=== PATIENT | male | born 1970 | race African-American/Black ===

== ENCOUNTER 2016-12-14 13:48 | Inpatient (IN) | payer BC ==
[2016-12-14 14:47] VITALS: BMI 30.8
--- NOTE | 2016-12-14 15:42 | HP ---
CIWA Score - CIWA Score Nausea/Vomitin Muscle Tremors: 3 Anxiety: 3 Agitation: 3 Paroxysmal Sweats: 1-Minimal Palms Moist Orientation: 0-Oriented Tacttile Disturbances: 2-Mild Itch/Numbness/Burn Auditory Disturbances: 2-Mild Harshness/Frighten Visual Disturbances: 1-Very Mild Sensitivity Headache: 2-Mild CIWA-Ar Total Score: 20 Admission ROS BHS - HPI Chief Complaint: I NEED HELP TO STOP DRINKING ALCOHOL Allergies/Adverse Reactions: Allergies Allergy/AdvReac Type Severity Reaction Status Date / Time Fish Containing Products Allergy Severe Swelling Verified 12/14/16 15:23 History of Present Illness: THIS 46 YEARS OLD MALE WITH ALCOHOL DEPENDENCE,SEEKING DETOX,NEVER BEEN IN DETOX BEFORE NICOTINE DEPENDENCE HISTORY OF HYPERTENSION,SEIZURE LAST 4 MONTH AGO,HISTORY OF PE,DVT LEFT LEG IN 2006,IVC FILTER IN 2006 LOW BACK PAIN HYPERCHOLESTEROLEMIA Exam Limitations: No Limitations - Ebola screening Have you traveled outside of the country in the last 21 days: No Have you been sick,other than usual withdrawal symptoms: No - Review of Systems Constitutional: Loss of Appetite, Malaise, Night Sweats, Changes in sleep EENT: reports: Nose Congestion Respiratory: reports: No Symptoms reported Cardiac: reports: No Symptoms Reported GI: reports: Diarrhea, Nausea, Abdominal cramping : reports: No Symptoms Reported Musculoskeletal: reports: Back Pain, Muscle Pain Integumentary: reports: Dryness Neuro: reports: Headache, Tremors Endocrine: reports: No Symptoms Reported Hematology: reports: No Symptoms Reported Psychiatric: reports: No Sypmtoms Reported, Judgement Intact, Mood/Affect Appropiate, Orientated x3 Patient History - Patient Medical History Hx Anemia: No Hx Asthma: No Hx Chronic Obstructive Pulmonary Disease (COPD): No Hx Cancer: No Hx Cardiac Disorders: No Hx Congestive Heart Failure: No Hx Hypertension: Yes (ON MED) Hx Hypercholesterolemia: Yes (ON MED) Hx Pacemaker: No HX Cerebrovascular Accident: No Hx Seizures: Yes (LAST 08/28) Hx Dementia: No Hx Diabetes: No Hx Gastrointestinal Disorders: No Hx Liver Disease: No Hx Genitourinary Disorders: No Hx Sexually Transmitted Disorders: Yes (CLAMYDIA,GONORRHEA) Hx Renal Disease (ESRD): No Hx Thyroid Disease: No Hx Human Immunodeficiency Virus (HIV): No (LAST 10/28 NEGATIVE) Hx Hepatitis C: No Hx Depression: No Hx Suicide Attempt: No Hx Bipolar Disorder: No Hx Schizophrenia: No Other Medical History: NO SUCIDAL,NO HOMICIDAL,TAKING BACTRIM DS 1 TAB PO BID - Patient Surgical History Past Surgical History: Yes Other Surgical History: IVC FILTER IN 2006 - PPD History Previous Implant?: Yes Documented Results: Negative w/o proof Implanted On Prior [facility] Admission?: No PPD to be Administered?: Yes - Smoking Cessation Smoking history: Current every day smoker Have you smoked in the past 12 months: Yes Aproximately how many cigarettes per day: 10 Cigars Per Day: 0 Hx Chewing Tobacco Use: No Initiated information on smoking cessation: Yes 'Breaking Loose' booklet given: 12/14/16 - Substance & Tx. History Hx Alcohol Use: Yes Hx Substance Use: No Substance Use Type: Alcohol Hx Substance Use Treatment: No - Substances Abused Alcohol Route: Oral Frequency: Daily Amount used: 1 QT VODKA Age of first use: 27 Date of Last Use: 12/14/16 Family Disease History - Family Disease History Family History: Denies Admission Physical Exam S - Vital Signs Vital Signs: Vital Signs - 24 hr 12/14/16 14:43 Temperature 97.4 F L Pulse Rate 105 H Respiratory 20 Rate Blood Pressure 151/96 - Physical General Appearance: Yes: Moderate Distress, Tremorous, Irritable, Sweating, Anxious HEENTM: Yes: Normal ENT Inspection, YESSY, Pharynx Normal Respiratory: Yes: Lungs Clear, Normal Breath Sounds, No Respiratory Distress Neck: Yes: Within Normal Limits, Supple, Trachea in good position Breast: Yes: Within Normal Limits Cardiology: Yes: Within Normal Limits, Regular Rhythm, Regular Rate, S1, S2 Abdominal: Yes: Within Normal Limits, Normal Bowel Sounds, Non Tender, Soft Genitourinary: Yes: Within Normal Limits Back: Yes: Muscle Spasm Musculoskeletal: Yes: full range of Motion, Back pain, Muscle Pain Extremities: Yes: Within Normal Limits, Normal Inspection, Normal Range of Motion Neurological: Yes: hydrogen treater II-XII NML intact, Alert, Motor Strength 5/5 Integumentary: Yes: Dry Lymphatic: Yes: Within Normal Limits - Diagnostic (1) Alcohol dependence with uncomplicated withdrawal Current Visit: Yes Status: Acute (2) Essential hypertension Current Visit: Yes Status: Acute (3) Hypercholesterolemia Current Visit: Yes Status: Acute (4) Seizure Current Visit: Yes Status: Acute (5) UTI (urinary tract infection) Current Visit: Yes Status: Acute (6) History of pulmonary embolism Current Visit: Yes Status: Acute (7) History of deep venous thrombosis (DVT) of distal vein of left lower extremity Current Visit: Yes Status: Acute (8) S/P IVC filter Current Visit: Yes Status: Acute (9) Low back pain Current Visit: Yes Status: Acute Cleared for Admission [facility] - Detox or Rehab [facility] Level of Care: Medically Managed Detox Regimen/Protocol: Librium [facility] Breath Alcohol Content Breath Alcohol Content: 0.378 Urine Drug Screen - Results Drug Screen Negative: Yes
[2016-12-14] MEDS ORDERED: MAGNESIUM CITRATE 300 ML BOTTLE PO PRN (15:59)
[2016-12-14] MEDS ORDERED: guaiFENesin/D-METHORPHAN HB 10 ML UNIT-DOSE CUPS PO PRN (15:59)
[2016-12-14] MEDS ORDERED: MENTHOL/PHENOL 1 EACH UD MM PRN (15:59)
[2016-12-14] MEDS ORDERED: P-EPHED 60MG/TRIPROLIDI 2.5MG TABLET PO PRN (15:59)
[2016-12-14] MEDS ORDERED: ACETAMINOPHEN 325 MG TABLET (FP) PO PRN (15:59)
[2016-12-14] MEDS ORDERED: LOPERAMIDE HCL 2 MG CAPSULE PO PRN (15:59)
[2016-12-14] MEDS ORDERED: MAG HYDROX/AL HYDROX/SIMETH 30 ML UNIT-DOSE CUP PO PRN (15:59)
[2016-12-14] MEDS ORDERED: hydrOXYzine PAMOATE 50 MG CAPSULE (FP) PO PRN ×2 (15:59→17:32)
[2016-12-14] MEDS ORDERED: IBUPROFEN 400 MG TABLET (FP) PO PRN (15:59)
[2016-12-14] MEDS ORDERED: MAGNESIUM HYDROX 2400MG/30ML ORAL SUSPENSION 30 ML CUP PO PRN (15:59)
[2016-12-14] MEDS ORDERED: chlordiazePOXIDE HCL 25 MG CAPSULE PO ONE (17:30)
[2016-12-14] MEDS: NICOTINE 21 MG/24 HOURS TOPICAL PATCH TD SCH (18:47)
[2016-12-14] MEDS ORDERED: amLODIPine BESYLATE 10 MG TABLET (FP) PO ONE (20:01)
[2016-12-14] MEDS: METOPROLOL TARTRATE 25 MG TABLET (FP) PO SCH (22:39)
[2016-12-14] MEDS: chlordiazePOXIDE HCL 25 MG CAPSULE PO SCH (22:39)
[2016-12-14] MEDS: SULFAMETHOXAZOLE/TRIMETHOPRIM 800MG/160MG D.S. TABLET PO SCH (22:40)
[2016-12-14] MEDS: diphenhydrAMINE HCL 50 MG CAPSULE PO PRN (22:40)
[2016-12-14] MEDS: ATORVASTATIN CA 20 MG TABLET (FP) PO SCH (22:40)
[2016-12-14] MEDS: THIAMINE HCL 100 MG TABLET (FP) PO SCH (22:40)
[2016-12-14 23:17] LABS: URINE APPEARANCE CLEAR; URINE BILIRUBIN NEGATIVE (NEGATIVE); URINE BLOOD 2+ (NEGATIVE); URINE COLOR YELLOW; URINE GLUCOSE (UA) NEGATIVE (NEGATIVE); URINE KETONE NEGATIVE (NEGATIVE); URINE LEUK ESTERASE NEGATIVE (NEGATIVE); URINE NITRITE NEGATIVE (NEGATIVE); URINE UROBILINOGEN NEGATIVE mg/dL (0.2-1.0)
[2016-12-14 23:24] LABS: URINE PROTEIN 3+ (NEGATIVE)
[2016-12-14 23:36] LABS: URINE RBC 3 /hpf (0-3); URINE WBC 1 /hpf (3-5)
[2016-12-15] MEDS: chlordiazePOXIDE HCL 25 MG CAPSULE PO PRN (02:20)
[2016-12-15] MEDS: chlordiazePOXIDE HCL 25 MG CAPSULE PO SCH ×4 (05:44→22:25)
[2016-12-15] MEDS ORDERED: chlordiazePOXIDE HCL 25 MG CAPSULE PO ONE (08:22)
[2016-12-15] MEDS ORDERED: ONDANSETRON *ODT* 4 MG TABLET SL PRN (08:33)
[2016-12-15 09:37] LABS: MCH 36.3 pg (25.7-33.7); MCHC 33.9 g/dl (32.0-35.9); MEAN CELL VOLUME 107.3 fl (80-96); MEAN PLT VOLUME 9.6 fl (7.5-11.1); PLATELET COUNT 95 K/MM3 (134-434); RDW 15.1 % (11.9-15.9); WHITE BLOOD COUNT 3.4 K/mm3 (4.0-10.0)
[2016-12-15 09:53] LABS: ALBUMIN 3.7 g/dl (3.4-5.0); ALK PHOS 79 U/L (45-117); ANION GAP 9 (8-16); BILIRUBIN,TOTAL 1.6 mg/dL (0.2-1.0); CALCIUM 8.5 mg/dL (8.5-10.1); CO2 31 mmol/L (21-32); GLUCOSE,RANDOM 94 mg/dL (74-106); SGOT/AST 86 U/L (15-37); SGPT/ALT 47 U/L (12-78); TOT PROT 7.7 g/dl (6.4-8.2)
[2016-12-15] MEDS ORDERED: PATIENT'S OWN MEDICATION (NON-FORMULARY) (Cyanocobalamin (Vitamin B-12) [Vitamin B-12] 1,0 PO SCH (10:00)
[2016-12-15] MEDS: amLODIPine BESYLATE 10 MG TABLET (FP) PO SCH (10:32)
[2016-12-15] MEDS: LOSARTAN POTASSIUM 50 MG TABLET (FP) PO SCH (10:33)
[2016-12-15] MEDS: SULFAMETHOXAZOLE/TRIMETHOPRIM 800MG/160MG D.S. TABLET PO SCH (10:33)
[2016-12-15] MEDS: METOPROLOL TARTRATE 25 MG TABLET (FP) PO SCH ×2 (10:33→22:24)
[2016-12-15] MEDS: PRENATAL VITAMINS W/ FOLIC ACID TABLET (FP) PO SCH (10:33)
[2016-12-15] MEDS: NICOTINE 21 MG/24 HOURS TOPICAL PATCH TD SCH (10:51)
[2016-12-15] MEDS: CYANOCOBALAMIN 1,000 MCG TABLET (FP) PO SCH (12:18)
--- NOTE | 2016-12-15 12:57 | PN ---
[facility] CIWA - CIWA Score Nausea/Vomitin-No Nausea/No Vomiting Muscle Tremors: 4-Moderate,w/Arms Extend Anxiety: 4-Mod. Anxious/Guarded Agitation: 4-Moderately Restless Paroxysmal Sweats: 1-Minimal Palms Moist Orientation: 0-Oriented Tacttile Disturbances: 3-Moderate Itch/Numb/Burn Auditory Disturbances: 0-None Visual Disturbances: 0-None Headache: 0-None Present CIWA-Ar Total Score: 16 BHS Progress Note (SOAP) Subjective: ANXIETY,SWEATS,TREMORS,INTERMITTENT SLEEP. Objective: 12/15/16 12:55 Vital Signs Temperature 98.0 F 12/15/16 09:26 Pulse Rate 123 H 12/15/16 09:26 Respiratory Rate 20 12/15/16 09:26 Blood Pressure 145/109 12/15/16 09:26 O2 Sat by Pulse Oximetry (%) Laboratory Last Values WBC 3.4 K/mm3 (4.0-10.0) L 12/15/16 07:00 RBC 3.45 M/mm3 (4.00-5.60) L 12/15/16 07:00 Hgb 12.6 GM/dL (11.7-16.9) 12/15/16 07:00 Hct 37.1 % (35.4-49) 12/15/16 07:00 MCV 107.3 fl (80-96) H 12/15/16 07:00 MCH 36.3 pg (25.7-33.7) H 12/15/16 07:00 MCHC 33.9 g/dl (32.0-35.9) 12/15/16 07:00 RDW 15.1 % (11.9-15.9) 12/15/16 07:00 Plt Count 95 K/MM3 (134-434) L 12/15/16 07:00 MPV 9.6 fl (7.5-11.1) 12/15/16 07:00 Sodium 138 mmol/L (136-145) 12/15/16 07:00 Potassium 3.0 mmol/L (3.5-5.1) L 12/15/16 07:00 Chloride 98 mmol/L (98-107) 12/15/16 07:00 Carbon Dioxide 31 mmol/L (21-32) 12/15/16 07:00 Anion Gap 9 (8-16) 12/15/16 07:00 BUN 9 mg/dL (7-18) 12/15/16 07:00 Creatinine 1.0 mg/dL (0.7-1.3) 12/15/16 07:00 Creat Clearance w eGFR > 60 (>60) 12/15/16 07:00 Random Glucose 94 mg/dL (74-106) 12/15/16 07:00 Calcium 8.5 mg/dL (8.5-10.1) 12/15/16 07:00 Total Bilirubin 1.6 mg/dL (0.2-1.0) H 12/15/16 07:00 AST 86 U/L (15-37) H 12/15/16 07:00 ALT 47 U/L (12-78) 12/15/16 07:00 Alkaline Phosphatase 79 U/L (45-117) 12/15/16 07:00 Total Protein 7.7 g/dl (6.4-8.2) 12/15/16 07:00 Albumin 3.7 g/dl (3.4-5.0) 12/15/16 07:00 Urine Color Yellow 12/14/16 21:36 Urine Appearance Clear 12/14/16 21:36 Urine pH 5.0 (5.0-8.0) 12/14/16 21:36 Ur Specific [place] >= 1.030 (1.005-1.025) H 12/14/16 21:36 Urine Protein 3+ (NEGATIVE) H 12/14/16 21:36 Urine Glucose (UA) Negative (NEGATIVE) 12/14/16 21:36 Urine Ketones Negative (NEGATIVE) 12/14/16 21:36 Urine Blood 2+ (NEGATIVE) H 12/14/16 21:36 Urine Nitrite Negative (NEGATIVE) 12/14/16 21:36 Urine Bilirubin Negative (NEGATIVE) 12/14/16 21:36 Urine Urobilinogen Negative mg/dL (0.2-1.0) 12/14/16 21:36 Urine RBC 3 /hpf (0-3) 12/14/16 21:36 Urine WBC 1 /hpf (3-5) 12/14/16 21:36 Ur Epithelial Cells Rare /hpf (FEW) 12/14/16 21:36 RPR Titer Nonreactive (NONREACTIVE) 12/15/16 07:00 Assessment: 12/15/16 12:56 WITHDRAWAL SX Plan: CONTINUE DETOX
[2016-12-15] MEDS ORDERED: POTASSIUM CHLORIDE TABS 20 MEQ TABLET.ER (FP) PO ONE (13:34)
[2016-12-15] MEDS: TRIMETHOPRIM PO SCH (22:24)
[2016-12-15] MEDS: ATORVASTATIN CA 20 MG TABLET (FP) PO SCH (22:24)
[2016-12-15] MEDS: SULFAMETHOXAZOLE PO SCH (22:24)
[2016-12-15] MEDS: [UNRECOGNIZED DRUG - OTHER] PO SCH (22:24)
[2016-12-15] MEDS: POTASSIUM CHLORIDE TABS 20 MEQ TABLET.ER (FP) PO SCH (22:24)
[2016-12-15] MEDS: THIAMINE HCL 100 MG TABLET (FP) PO SCH (22:24)
[2016-12-15] MEDS: diphenhydrAMINE HCL 50 MG CAPSULE PO PRN (22:26)
[2016-12-16] MEDS: diphenhydrAMINE HCL 50 MG CAPSULE PO PRN (00:25)
[2016-12-16] MEDS: chlordiazePOXIDE HCL 25 MG CAPSULE PO PRN (00:27)
[2016-12-16] MEDS: chlordiazePOXIDE HCL 25 MG CAPSULE PO SCH ×2 (06:04→10:15)
--- NOTE | 2016-12-16 07:24 | PN ---
[facility] Progress Note Note: PATIENT HAS INSOMNIA ,WALKING IN OTHER PATIENT'S ROOM,INTERRUPTED SLEEP,INSOMNIA ALERT,ORIENTED X 3 WITHDRAWAL SYMPTOM BLOOD FOR AMMONIA LEVEL TODAY PSYCHIATRIC EVALUATION CONTINUIE DETOX [facility] REGIMEN
[2016-12-16] MEDS: PRENATAL VITAMINS W/ FOLIC ACID TABLET (FP) PO SCH (10:15)
[2016-12-16] MEDS: METOPROLOL TARTRATE 25 MG TABLET (FP) PO SCH (10:15)
[2016-12-16] MEDS: TRIMETHOPRIM PO SCH (10:16)
[2016-12-16] MEDS: [UNRECOGNIZED DRUG - OTHER] PO SCH (10:16)
[2016-12-16] MEDS: POTASSIUM CHLORIDE TABS 20 MEQ TABLET.ER (FP) PO SCH (10:16)
[2016-12-16] MEDS: SULFAMETHOXAZOLE PO SCH (10:16)
[2016-12-16] MEDS: amLODIPine BESYLATE 10 MG TABLET (FP) PO SCH (10:16)
[2016-12-16] MEDS: CYANOCOBALAMIN 1,000 MCG TABLET (FP) PO SCH (10:17)
[2016-12-16 10:18] LABS: BASOPHIL 0.8 % (0-2.0); EOSINOPHIL 0.7 % (0-4.5); MCH 36.2 pg (25.7-33.7); MCHC 33.8 g/dl (32.0-35.9); MEAN CELL VOLUME 107.2 fl (80-96); MEAN PLT VOLUME 10.3 fl (7.5-11.1); NEUTROPHILS 69.5 % (42.8-82.8); PLATELET COUNT 94 K/MM3 (134-434); RDW 14.2 % (11.9-15.9); WHITE BLOOD COUNT 2.8 K/mm3 (4.0-10.0)
[2016-12-16] MEDS: NICOTINE 21 MG/24 HOURS TOPICAL PATCH TD SCH (10:18)
[2016-12-16] MEDS: LOSARTAN POTASSIUM 50 MG TABLET (FP) PO SCH (10:18)
[2016-12-16 10:39] LABS: ALBUMIN 3.9 g/dl (3.4-5.0); ANION GAP 8 (8-16); CALCIUM 9.2 mg/dL (8.5-10.1); CO2 30 mmol/L (21-32); CREATININE 1.4 mg/dL (0.7-1.3); GLUCOSE,RANDOM 85 mg/dL (74-106); SGOT/AST 86 U/L (15-37); SGPT/ALT 46 U/L (12-78)
[2016-12-16 10:41] LABS: ALK PHOS 84 U/L (45-117); BILIRUBIN,TOTAL 1.2 mg/dL (0.2-1.0); TOT PROT 8.3 g/dl (6.4-8.2)
--- NOTE | 2016-12-16 11:09 | PN ---
[facility] CIWA - CIWA Score Nausea/Vomitin-No Nausea/No Vomiting Muscle Tremors: 3 Anxiety: 4-Mod. Anxious/Guarded Agitation: 0-Normal Activity Paroxysmal Sweats: 3 Orientation: 4Disoriented Place/Person Tacttile Disturbances: 2-Mild Itch/Numbness/Burn Auditory Disturbances: 0-None Visual Disturbances: 0-None Headache: 0-None Present CIWA-Ar Total Score: 16 S Progress Note (SOAP) Subjective: Interrupted sleep, Sweating, Fatigue. Objective: PT A & O X 2 (DISORIENTED ABOUT CURRENT LOCATION). NO ACUTE DISTRESS. PT. DENIES CHEST PAIN. 12/16/16 11:01 Vital Signs Temperature 97.4 F L 12/16/16 09:20 Pulse Rate 86 12/16/16 09:20 Respiratory Rate 18 12/16/16 09:20 Blood Pressure 134/96 12/16/16 09:20 O2 Sat by Pulse Oximetry (%) Laboratory Tests 12/14/16 12/15/16 12/15/16 21:36 07:00 07:00 WBC 3.4 L RBC 3.45 L Hgb 12.6 Hct 37.1 MCV 107.3 H MCH 36.3 H MCHC 33.9 RDW 15.1 Plt Count 95 L MPV 9.6 Neutrophils % Lymphocytes % Monocytes % Eosinophils % Basophils % Sodium 138 Potassium 3.0 L Chloride 98 Carbon Dioxide 31 Anion Gap 9 BUN 9 Creatinine 1.0 Creat Clearance w eGFR > 60 Random Glucose 94 Calcium 8.5 Total Bilirubin 1.6 H AST 86 H ALT 47 Alkaline Phosphatase 79 Total Protein 7.7 Albumin 3.7 Urine Color Yellow Urine Appearance Clear Urine pH 5.0 Ur Specific [place] >= 1.030 H Urine Protein 3+ H Urine Glucose (UA) Negative Urine Ketones Negative Urine Blood 2+ H Urine Nitrite Negative Urine Bilirubin Negative Urine Urobilinogen Negative Urine RBC 3 Urine WBC 1 Ur Epithelial Cells Rare RPR Titer 12/15/16 12/16/16 12/16/16 07:00 07:15 07:15 WBC 2.8 L RBC 3.69 L Hgb 13.3 Hct 39.5 MCV 107.2 H MCH 36.2 H MCHC 33.8 RDW 14.2 Plt Count 94 L MPV 10.3 Neutrophils % 69.5 Lymphocytes % 15.4 Monocytes % 13.6 H Eosinophils % 0.7 Basophils % 0.8 Sodium 136 Potassium 3.3 L Chloride 98 Carbon Dioxide 30 Anion Gap 8 BUN 12 D Creatinine 1.4 H D Creat Clearance w eGFR 55.05 Random Glucose 85 Calcium 9.2 Total Bilirubin 1.2 H D AST 86 H ALT 46 Alkaline Phosphatase 84 Total Protein 8.3 H Albumin 3.9 Urine Color Urine Appearance Urine pH Ur Specific [place] Urine Protein Urine Glucose (UA) Urine Ketones Urine Blood Urine Nitrite Urine Bilirubin Urine Urobilinogen Urine RBC Urine WBC Ur Epithelial Cells RPR Titer Nonreactive LABS NOTED. Assessment: 12/16/16 11:02 WITHDRAWAL SYMPTOMS. LEUKOPENIA. THROMBOCYTOPENIA. HYPOKALEMIA. 12/16/16 11:09 Plan: CONTINUE DETOX. D/C MAGNESIUM-CONTAINING MEDS. AND IBUPROFEN. INCREASE DAILY PO FLUID INTAKE. REPEAT UA FOR ELEVATED ADMISSION URINE BLOOD VALUE.
[2016-12-16] MEDS ORDERED: LACTULOSE 20 GM/30 ML UDC (FOR ORAL USE ONLY) PO SCH ×2 (11:15→22:00)
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
[2016-12-16 13:07] LABS: MACROCYTOSIS 3+; STOMATOCYTE 4+
[2016-12-16] MEDS ORDERED: POTASSIUM CHLORIDE ORAL LIQUID 20 MEQ/15 ML PO ONE (13:33)
[2016-12-16 13:38] VITALS: BP 117/84; PULSE 96; TEMP 97.6
--- NOTE | 2016-12-16 13:56 | PN ---
[facility] Progress Note Note: Over the last few hours, patient walked off Detox Unit X 2 and was escorted back to Unit by Security. When asked why he did this, patient patient responded by saying that he wanted to be able to go outside to smoke (patient currently prescribed daily Nicotine replacement patch and PRN Nicotine Gum). Patient A & O X 3. Patient denies any history of Psychiatric illness. Patient warned that if he were to walk off Detox unit again without being escorted by Medical staff for any reason, then he would be discharged from Unit for non-compliance with Unit rules / regulations. Patient verbalized understanding of warning. Carmelita Beck NP
[2016-12-16] MEDS ORDERED: NICOTINE POLACRILEX 2 MG GUM BUC PRN (13:58)
--- NOTE | 2016-12-16 14:24 | EKG ---
Test Reason : Blood Pressure : / mmHG Vent. Rate : 088 BPM Atrial Rate : 088 BPM P-R Int : 150 ms QRS Dur : 110 ms QT Int : 402 ms P-R-T Axes : 054 -28 047 degrees QTc Int : 486 ms NORMAL SINUS RHYTHM MODERATE VOLTAGE CRITERIA FOR LVH, MAY BE NORMAL VARIANT PROLONGED QT ABNORMAL ECG NO PREVIOUS ECGS AVAILABLE Confirmed by JOSE SAINZ MD ([id number]) on 12/16/2016 2:24:46 PM Referred By: Confirmed By:JOSE SAINZ MD
--- NOTE | 2016-12-16 15:32 | DS ---
[facility] Detox Discharge Summary Admission Date: 12/14/16 Discharge Date: 12/16/16 - History Present History: Alcohol Dependence Additional Comments: PATIENT DOES NOT SWISH TO STAY TO COMPLETE DETOX REGIMEN. POSSIBLE RISKS OF NOT COMPLETING DETOX REGIMEN DISCUSSED WITH PATIENT. PATIENT ADVISED TO GO IMMEDIATELY TO NEAREST ER SHOULD ANY INTOLERABLE DETOX SYMPTOMS DEVELOP AT ANY TIME. PATIENT ALSO ADVISED TO COMPLETE REMAINDER OF FULL COURSE OF ANTIBIOTIC ( BACTRIM DS) STARTED BY HIS DAMAGED FREIGHT INSPECTOR FOR POSSIBLE UTI JUST PRIOR TO HIS ADMISSION TO DETOX UNIT (AND CONTINUED WHILE ADMITTED TO DETOX) AND TO FOLLOW-UP WITH DAMAGED FREIGHT INSPECTOR DR. LANDIS ([facility].) FOR MEDICAL ASSESSMENT. COPIES OF ALL LABS DRAWN WHILE ADMITTED FOR DETOX GIVEN TO PATIENT PRIOR TO LEAVING THE UNIT. PATIENT LEFT DETOX UNIT IN STABLE MEDICAL CONDITION. Pertinent Past History: HTN, history of Seizure, S/P IVC Filter, History of DVT of Left Lower Extremity , History of Pulmonary Embolism, UTI, Low Back Pain, Hypercholesterolemia, Nicotine Dependence. - Physical Exam Results Vital Signs: Vital Signs Temperature 97.6 F 12/16/16 13:37 Pulse Rate 96 H 12/16/16 13:37 Respiratory Rate 20 12/16/16 13:37 Blood Pressure 117/84 12/16/16 13:37 O2 Sat by Pulse Oximetry (%) Pertinent Admission Physical Exam Findings: WITHDRAWAL SYMPTOMS. Laboratory Tests 12/14/16 12/15/16 12/15/16 21:36 07:00 07:00 WBC 3.4 L RBC 3.45 L Hgb 12.6 Hct 37.1 MCV 107.3 H MCH 36.3 H MCHC 33.9 RDW 15.1 Plt Count 95 L MPV 9.6 Neutrophils % Lymphocytes % Monocytes % Eosinophils % Basophils % Macrocytosis Stomatocytes Sodium 138 Potassium 3.0 L Chloride 98 Carbon Dioxide 31 Anion Gap 9 BUN 9 Creatinine 1.0 Creat Clearance w eGFR > 60 Random Glucose 94 Calcium 8.5 Total Bilirubin 1.6 H AST 86 H ALT 47 Alkaline Phosphatase 79 Am[place]ia Total Protein 7.7 Albumin 3.7 Urine Color Yellow Urine Appearance Clear Urine pH 5.0 Ur Specific [place] >= 1.030 H Urine Protein 3+ H Urine Glucose (UA) Negative Urine Ketones Negative Urine Blood 2+ H Urine Nitrite Negative Urine Bilirubin Negative Urine Urobilinogen Negative Urine RBC 3 Urine WBC 1 Ur Epithelial Cells Rare RPR Titer 12/15/16 12/16/16 12/16/16 07:00 07:15 07:15 WBC 2.8 L RBC 3.69 L Hgb 13.3 Hct 39.5 MCV 107.2 H MCH 36.2 H MCHC 33.8 RDW 14.2 Plt Count 94 L MPV 10.3 Neutrophils % 69.5 Lymphocytes % 15.4 Monocytes % 13.6 H Eosinophils % 0.7 Basophils % 0.8 Macrocytosis 3+ Stomatocytes 4+ Sodium 136 Potassium 3.3 L Chloride 98 Carbon Dioxide 30 Anion Gap 8 BUN 12 D Creatinine 1.4 H D Creat Clearance w eGFR 55.05 Random Glucose 85 Calcium 9.2 Total Bilirubin 1.2 H D AST 86 H ALT 46 Alkaline Phosphatase 84 Ammonia Total Protein 8.3 H Albumin 3.9 Urine Color Urine Appearance Urine pH Ur Specific [place] Urine Protein Urine Glucose (UA) Urine Ketones Urine Blood Urine Nitrite Urine Bilirubin Urine Urobilinogen Urine RBC Urine WBC Ur Epithelial Cells RPR Titer Nonreactive 12/16/16 07:15 WBC RBC Hgb Hct MCV MCH MCHC RDW Plt Count MPV Neutrophils % Lymphocytes % Monocytes % Eosinophils % Basophils % Macrocytosis Stomatocytes Sodium Potassium Chloride Carbon Dioxide Anion Gap BUN Creatinine Creat Clearance w eGFR Random Glucose Calcium Total Bilirubin AST ALT Alkaline Phosphatase [place]ia 47.97 H Total Protein Albumin Urine Color Urine Appearance Urine pH Ur Specific [place] Urine Protein Urine Glucose (UA) Urine Ketones Urine Blood Urine Nitrite Urine Bilirubin Urine Urobilinogen Urine RBC Urine WBC Ur Epithelial Cells RPR Titer LABS NOTED. - Treatment Hospital Course: Detoxed Safely - Medication Discharge Medications: Ambulatory Orders Amlodipine Besylate [Norvasc -] 10 mg PO DAILY 12/14/16 Atorvastatin Calcium 20 mg PO HS 12/14/16 Cyanocobalamin (Vitamin B-12) [Vitamin B-12] 1,000 mcg PO DAILY 12/14/16 Folic Acid - 1 mg PO DAILY 12/14/16 Losartan Potassium [Cozaar -] 50 mg PO DAILY 12/14/16 Metoprolol Tartrate [Lopressor -] 25 mg PO BID 12/14/16 Sulfamethoxazole/Trimethoprim [Bactrim Ds -] 1 tab PO BID 12/14/16 - Diagnosis (1) Alcohol dependence with uncomplicated withdrawal Current Visit: Yes Status: Acute (2) Essential hypertension Current Visit: Yes Status: Chronic (3) History of deep venous thrombosis (DVT) of distal vein of left lower extremity Current Visit: Yes Status: Chronic (4) History of pulmonary embolism Current Visit: Yes Status: Chronic (5) Hypercholesterolemia Current Visit: Yes Status: Chronic (6) Low back pain Current Visit: Yes Status: Acute Qualifiers: Chronicity: acute Back pain laterality: unspecified Sciatica presence: unspecified whether sciatica present Qualified Code(s): M54.5 - Low back pain; M54.5 - Low back pain (7) S/P IVC filter Current Visit: Yes Status: Chronic (8) Seizure Current Visit: Yes Status: Acute (9) UTI (urinary tract infection) Current Visit: Yes Status: Acute Qualifiers: Urinary tract infection type: site unspecified Hematuria presence: without hematuria Qualified Code(s): N39.0 - Urinary tract infection, site not specified; N39.0 - Urinary tract infection, site not specified; R31.9 - Hematuria, unspecified; R31.9 - Hematuria, unspecified (10) Alcohol-induced sleep disorder Current Visit: Yes Status: Acute (11) Nicotine dependence Current Visit: Yes Status: Chronic Qualifiers: Nicotine product type: cigarettes Substance use status: uncomplicated Qualified Code(s): F17.210 - Nicotine dependence, cigarettes, uncomplicated; F17.210 - Nicotine dependence, cigarettes, uncomplicated - AMA Did Patient Leave Against Medical Advice: Yes (PATIENT DID NOT WISH TO STAY TO COMPLETE DETOX REGIMEN.)
[2016-12-16] MEDS ORDERED: POTASSIUM CHLORIDE ORAL LIQUID 20 MEQ/15 ML PO SCH (20:00)
[2016-12-16] MEDS ORDERED: ZOLPIDEM TARTRATE 10 MG TABLET (PARK CARE ONLY) PO PRN (22:00)
[2016-12-16] MEDS ORDERED: chlordiazePOXIDE 5 MG CAPSULE PO SCH (23:00)
[2016-12-17] MEDS ORDERED: chlordiazePOXIDE HCL 10 MG CAPSULE PO SCH (23:00)
== END 2016-12-16 14:51 | disposition left against medical advice (07) | DRG 894 ==
LOC: YASAS 13:48 → Y3N 17:17
PROVIDERS: ADMIT Internal Medicine; ATTEND Internal Medicine
PROC: HZ2ZZZZ Detoxification Services for Substance Abuse Treatment (ICD-10-PCS; principal; 2016-12-14)
DX: F10.230 Alcohol dependence with withdrawal, uncomplicated (principal); F10.282 Alcohol dependence with alcohol-induced sleep disorder; F17.210 Nicotine dependence, cigarettes, uncomplicated; I10 Essential (primary) hypertension; M54.5 Low back pain; G89.29 Other chronic pain; D72.819 Decreased white blood cell count, unspecified; D69.6 Thrombocytopenia, unspecified; G47.00 Insomnia, unspecified; N31.9 Neuromuscular dysfunction of bladder, unspecified; Z86.718 Personal history of other venous thrombosis and embolism; Z95.828 Presence of other vascular implants and grafts; Z86.69 Personal history of other diseases of the nervous system and sense organs; Z91.013 Allergy to seafood; Z87.438 Personal history of other diseases of male genital organs
CPT/HCPCS: 36415; 80053; 81003; 81015; 82140; 85025; 85027; 86593; 93005; 93010

== ENCOUNTER 2016-12-27 13:43 | Inpatient (IN) | payer BC ==
[2016-12-27 16:07] VITALS: BMI 30.8
--- NOTE | 2016-12-27 19:51 | HP ---
Admission ROS [facility] - [facility] Chief Complaint: I WANT TO GO TO REHAB Allergies/Adverse Reactions: Allergies Allergy/AdvReac Type Severity Reaction Status Date / Time Fish Containing Products Allergy Severe Swelling Verified 12/27/16 19:29 History of Present Illness: 46 YEARS OLD MALE WITH LONG HISTORY OF ALCOHOL NICOTINE DEPENDENCE HAS HYPERTENSION HYPERLIPIDEMIA DENIES MENTAL ILLNESS IS ADMITTED TO REHAB Exam Limitations: No Limitations - Ebola screening Have you traveled outside of the country in the last 21 days: No Have you had contact with anyone from an Ebola affected area: No Have you been sick,other than usual withdrawal symptoms: No Do you have a fever: No - Review of Systems Constitutional: No Symptoms Reported EENT: reports: Blurred Vision (NEED EYE GLASSES) Respiratory: reports: No Symptoms reported Cardiac: reports: No Symptoms Reported GI: reports: No Symptoms Reported : reports: No Symptoms Reported Musculoskeletal: reports: Back Pain Integumentary: reports: No Symptoms Reported Neuro: reports: Seizure (07/2016 HYPERTENSION RELATED) Endocrine: reports: No Symptoms Reported Hematology: reports: No Symptoms Reported Psychiatric: reports: Judgement Intact, Mood/Affect Appropiate, Orientated x3 Other Systems: Reviewed and Negative Patient History - Patient Medical History Hx Anemia: No Hx Asthma: No Hx Chronic Obstructive Pulmonary Disease (COPD): No Hx Cancer: No Hx Cardiac Disorders: No Hx Congestive Heart Failure: No Hx Hypertension: Yes (ON MED) Hx Hypercholesterolemia: Yes (ON MED) Hx Pacemaker: No HX Cerebrovascular Accident: No Hx Seizures: Yes (LAST 08/28) Hx Dementia: No Hx Diabetes: No Hx Gastrointestinal Disorders: No Hx Liver Disease: No Hx Genitourinary Disorders: No Hx Sexually Transmitted Disorders: Yes (CLAMYDIA,GONORRHEA) Hx Renal Disease (ESRD): No Hx Thyroid Disease: No Hx Human Immunodeficiency Virus (HIV): No (LAST 10/28 NEGATIVE) Hx Hepatitis C: No Hx Depression: No Hx Suicide Attempt: No Hx Bipolar Disorder: No Hx Schizophrenia: No - Patient Surgical History Past Surgical History: Yes Other Surgical History: IVC FILTER IN 2006 LEFT LEG Anesthesia Reaction: No - PPD History Previous Implant?: Yes Documented Results: Negative w/proof Implanted On Prior [facility] Admission?: Yes Date: 12/16/16 PPD to be Administered?: No - Smoking Cessation Smoking history: Current every day smoker Have you smoked in the past 12 months: Yes Aproximately how many cigarettes per day: 10 Cigars Per Day: 0 Hx Chewing Tobacco Use: No Initiated information on smoking cessation: Yes 'Breaking Loose' booklet given: 12/27/16 - Substance & Tx. History Hx Alcohol Use: Yes Hx Substance Use: No Substance Use Type: Alcohol Hx Substance Use Treatment: Yes (12/14-12/16/16 [facility]) - Substances Abused Alcohol Route: Oral Frequency: Daily Amount used: MAYITO [place]LE[place] Age of first use: 30 Date of Last Use: 12/26/16 Family Disease History - Family Disease History Family Disease History: Diabetes: Grandparent, Heart Disease: Mother, Brother ( ANEURYSM), Other: Father (), Brother, Sister ( EMBOLISM ) Admission Physical Exam [facility] - Vital Signs Vital Signs: Vital Signs - 24 hr 12/27/16 16:03 Temperature 97.7 F Pulse Rate 86 Respiratory 20 Rate Blood Pressure 160/108 - Physical General Appearance: Yes: No Apparent Distress, Nourished, Appropriately Dressed HEENTM: Yes: Hearing grossly Normal, Normal ENT Inspection, Normocephalic, Normal Voice Respiratory: Yes: Chest Non-Tender, Lungs Clear, Normal Breath Sounds, No Respiratory Distress, No Accessory Muscle Use Neck: Yes: Supple, Trachea in good position Breast: Yes: Breasts Symetrical Cardiology: Yes: Regular Rhythm, Regular Rate, S1, S2 Abdominal: Yes: Normal Bowel Sounds, Non Tender, Soft Genitourinary: Yes: Within Normal Limits Back: Yes: Normal Inspection Musculoskeletal: Yes: full range of Motion, Gait Steady Extremities: Yes: Normal Inspection, Normal Range of Motion, Non-Tender Neurological: Yes: Fully Oriented, Alert, Motor Strength 5/5, Normal Response Integumentary: Yes: Warm Lymphatic: Yes: Within Normal Limits - Diagnostic (1) Alcohol dependence with uncomplicated withdrawal Current Visit: Yes Status: Acute (2) Essential hypertension Current Visit: Yes Status: Chronic (3) Hypercholesterolemia Current Visit: Yes Status: Chronic (4) Nicotine dependence Current Visit: Yes Status: Acute Qualifiers: Nicotine product type: cigarettes Substance use status: in withdrawal Qualified Code(s): F17.213 - Nicotine dependence, cigarettes, with withdrawal; F17.213 - Nicotine dependence, cigarettes, with withdrawal Cleared for Admission [facility] - Detox or Rehab [facility] Level of Care: Observation Bed Detox Regimen/Protocol: Not Applicable Claeared for Rehab Admission: Yes [facility] Breath Alcohol Content Breath Alcohol Content: 0 Urine Drug Screen - Results Drug Screen Negative: No Urine Drug Screen Results: BZO-Benzodiazepines Inpatient Rehab Admission - Initial Determination Are CD services needed?: Yes Free of communicable disease: Yes Not in need of hospitalization: Yes - Rehab Admission Criteria Previous failed treatment: Yes Poor recovery environment: Yes Comorbidities: Yes Lacks judgement: No Patient is meeting Inpatient Rehab admission criteria:: Yes
[2016-12-27] MEDS ORDERED: MAGNESIUM HYDROX 2400MG/30ML ORAL SUSPENSION 30 ML CUP PO PRN (20:05)
[2016-12-27] MEDS ORDERED: MENTHOL/PHENOL 1 EACH UD MM PRN (20:05)
[2016-12-27] MEDS ORDERED: NICOTINE POLACRILEX 2 MG GUM BUC PRN (20:05)
[2016-12-27] MEDS ORDERED: diphenhydrAMINE HCL 50 MG CAPSULE PO PRN (20:05)
[2016-12-27] MEDS ORDERED: guaiFENesin/D-METHORPHAN HB 10 ML UNIT-DOSE CUPS PO PRN (20:05)
[2016-12-27] MEDS ORDERED: MAGNESIUM CITRATE 300 ML BOTTLE PO PRN (20:05)
[2016-12-27] MEDS ORDERED: MAG HYDROX/AL HYDROX/SIMETH 30 ML UNIT-DOSE CUP PO PRN (20:05)
[2016-12-27] MEDS ORDERED: ACETAMINOPHEN 325 MG TABLET (FP) PO PRN (20:05)
[2016-12-27] MEDS ORDERED: TUBERCULIN PPD 5 TU/0.1ML VIAL ID ONE (23:25)
[2016-12-27] MEDS: LOSARTAN POTASSIUM 50 MG TABLET (FP) PO SCH (23:29)
[2016-12-27] MEDS: GABAPENTIN 300 MG CAPSULE (FP) PO SCH (23:29)
[2016-12-27] MEDS: amLODIPine BESYLATE 10 MG TABLET (FP) PO SCH (23:29)
[2016-12-27] MEDS: METOPROLOL SUCCINATE 25 MG TAB.SR.24H (FP) PO SCH (23:29)
[2016-12-27] MEDS: ATORVASTATIN CA 20 MG TABLET (FP) PO SCH (23:30)
[2016-12-27] MEDS: THIAMINE HCL 100 MG TABLET (FP) PO SCH (23:32)
[2016-12-28 01:31] LABS: URINE APPEARANCE CLEAR; URINE BILIRUBIN NEGATIVE (NEGATIVE); URINE BLOOD NEGATIVE (NEGATIVE); URINE COLOR LTYELLOW; URINE GLUCOSE (UA) NEGATIVE (NEGATIVE); URINE KETONE NEGATIVE (NEGATIVE); URINE NITRITE NEGATIVE (NEGATIVE); URINE PROTEIN NEGATIVE (NEGATIVE); URINE UROBILINOGEN NEGATIVE mg/dL (0.2-1.0)
[2016-12-28] MEDS: GABAPENTIN 300 MG CAPSULE (FP) PO SCH ×3 (06:32→21:06)
[2016-12-28] MEDS: PRENATAL VITAMINS W/ FOLIC ACID TABLET (FP) PO SCH (09:30)
[2016-12-28] MEDS: ASPIRIN 81 MG CHEWABLE TABLETS PO SCH (09:30)
[2016-12-28] MEDS: amLODIPine BESYLATE 10 MG TABLET (FP) PO SCH (09:30)
[2016-12-28] MEDS: METOPROLOL SUCCINATE 25 MG TAB.SR.24H (FP) PO SCH ×2 (09:31→21:06)
[2016-12-28] MEDS: LOSARTAN POTASSIUM 50 MG TABLET (FP) PO SCH (09:31)
[2016-12-28] MEDS: NICOTINE 14 MG/24 HOURS TOPICAL PATCH TD SCH (09:32)
[2016-12-28 09:40] LABS: URINE LEUK ESTERASE Negative (NEGATIVE)
--- NOTE | 2016-12-28 09:50 | HP ---
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 Medical History: HTN, hyperlipedemia,LBP, alcohol related seizure, PE/DVT left leg with IVC placed in 2006. Smokes cigarettes 10 a day. Psychiatric History: Patient denies history of psychaitric treatment, Physical/Sexual Abuse/Trauma History: Denies history of sexual,physical and verbal abuse. Vital Signs: Vital Signs - 24 hr 12/27/16 12/27/16 12/28/16 16:03 22:00 00:30 Temperature 97.7 F 99.2 F Pulse Rate 86 94 H Respiratory 20 18 16 Rate Blood Pressure 160/108 162/114 12/28/16 12/28/16 03:30 07:02 Temperature 98.6 F Pulse Rate 90 Respiratory 18 18 Rate Blood Pressure 131/98 Allergies/Adverse Reactions: Allergies Allergy/AdvReac Type Severity Reaction Status Date / Time Fish Containing Products Allergy Severe Swelling Verified 12/27/16 19:29 Date of last physical exam: 12/28/16 Concur with the findings of this exam: Yes - Substance Abuse/Tx History Hx Alcohol Use: Yes Hx Substance Use: No Substance Use Type: Alcohol (started at age of 27, daily 1 q of vodka.) Hx Substance Use Treatment: Yes Mental Status Exam - Mental Status Exam Alert and Oriented to: Time, Place, Person Cognitive Function: Good Patient Appearance: Well Groomed Mood: Hopeful Affect: Appropriate, Mood Congruent Patient Behavior: Appropriate, Cooperative Speech Pattern: Clear, Appropriate Voice Loudness: Normal Thought Process: Intact Thought Disorder: Not Present Suicidal Ideation: Denies Homicidal Ideation: Denies Insight/Judgement: Fair Sleep: Fair (sleeps well with Benadryl) Appetite: Fair Muscle strength/Tone: Normal Gait/Station: Normal Psychiatric Findings - Problem List ([place] 1, 2,3) (1) Nicotine dependence Current Visit: Yes Status: Acute Qualifiers: Nicotine product type: cigarettes Substance use status: in withdrawal Qualified Code(s): F17.213 - Nicotine dependence, cigarettes, with withdrawal; F17.213 - Nicotine dependence, cigarettes, with withdrawal (2) Essential hypertension Current Visit: Yes Status: Chronic (3) Hypercholesterolemia Current Visit: Yes Status: Chronic (4) Low back pain Current Visit: No Status: Acute Qualifiers: Chronicity: acute Back pain laterality: unspecified Sciatica presence: unspecified whether sciatica present Qualified Code(s): M54.5 - Low back pain; M54.5 - Low back pain (5) Seizure Current Visit: No Status: Acute (6) Alcohol dependence Current Visit: Yes Status: Acute - Initial Treatment Plan Initial Treatment Plan: Will continue monitor progress as needed.
[2016-12-28] MEDS: POTASSIUM CHLORIDE ORAL LIQUID 20 MEQ/15 ML PO SCH ×2 (11:22→21:06)
[2016-12-28] MEDS: LOPERAMIDE HCL 2 MG CAPSULE PO PRN ×2 (15:40→22:33)
[2016-12-28] MEDS: THIAMINE HCL 100 MG TABLET (FP) PO SCH (21:06)
[2016-12-28] MEDS: ATORVASTATIN CA 20 MG TABLET (FP) PO SCH (21:06)
[2016-12-28] MEDS: BACLOFEN 10 MG TABLET (FP) PO PRN (21:09)
[2016-12-28] MEDS ORDERED: diphenhydrAMINE HCL 25 MG CAPSULE (FP) PO ONE (22:28)
[2016-12-29] MEDS: GABAPENTIN 300 MG CAPSULE (FP) PO SCH ×3 (06:41→21:08)
[2016-12-29] MEDS: METOPROLOL SUCCINATE 25 MG TAB.SR.24H (FP) PO SCH ×2 (10:02→21:10)
[2016-12-29] MEDS: LOSARTAN POTASSIUM 50 MG TABLET (FP) PO SCH (10:02)
[2016-12-29] MEDS: ASPIRIN 81 MG CHEWABLE TABLETS PO SCH (10:02)
[2016-12-29] MEDS: PRENATAL VITAMINS W/ FOLIC ACID TABLET (FP) PO SCH (10:02)
[2016-12-29] MEDS: amLODIPine BESYLATE 10 MG TABLET (FP) PO SCH (10:02)
[2016-12-29] MEDS: POTASSIUM CHLORIDE ORAL LIQUID 20 MEQ/15 ML PO SCH (10:02)
[2016-12-29] MEDS: NICOTINE 14 MG/24 HOURS TOPICAL PATCH TD SCH (10:03)
[2016-12-29 10:20] LABS: BASOPHIL 0.7 % (0-2.0); EOSINOPHIL 0.6 % (0-4.5); MCH 36.6 pg (25.7-33.7); MCHC 34.3 g/dl (32.0-35.9); MEAN CELL VOLUME 106.8 fl (80-96); MEAN PLT VOLUME 9.4 fl (7.5-11.1); NEUTROPHILS 70.7 % (42.8-82.8); PLATELET COUNT 178 K/MM3 (134-434); RDW 13.4 % (11.9-15.9); WHITE BLOOD COUNT 4.4 K/mm3 (4.0-10.0)
[2016-12-29 10:27] LABS: ALBUMIN 3.3 g/dl (3.4-5.0); ANION GAP 8 (8-16); BILIRUBIN,TOTAL 0.8 mg/dL (0.2-1.0); CALCIUM 8.2 mg/dL (8.5-10.1); CO2 26 mmol/L (21-32); CREATININE 1.1 mg/dL (0.7-1.3); GLUCOSE,RANDOM 92 mg/dL (74-106); SGOT/AST 36 U/L (15-37); SGPT/ALT 28 U/L (12-78); TOT PROT 7.2 g/dl (6.4-8.2)
[2016-12-29 10:28] LABS: ALK PHOS 80 U/L (45-117)
--- NOTE | 2016-12-29 11:05 | EKG ---
Test Reason : Blood Pressure : / mmHG Vent. Rate : 078 BPM Atrial Rate : 078 BPM P-R Int : 160 ms QRS Dur : 100 ms QT Int : 420 ms P-R-T Axes : 053 -17 013 degrees QTc Int : 478 ms NORMAL SINUS RHYTHM NORMAL ECG WHEN COMPARED WITH ECG OF 14-DEC-2016 19:03, NONSPECIFIC T WAVE ABNORMALITY NOW EVIDENT IN LATERAL LEADS Confirmed by MOSES MORENO, TREY ([id number]) on 12/29/2016 11:05:29 AM Referred By: Meghan Ferrara Confirmed By:TREY LOPES MD
--- NOTE | 2016-12-29 11:56 | EKG ---
Test Reason : Blood Pressure : / mmHG Vent. Rate : 078 BPM Atrial Rate : 078 BPM P-R Int : 164 ms QRS Dur : 102 ms QT Int : 408 ms P-R-T Axes : 060 -23 -10 degrees QTc Int : 465 ms NORMAL SINUS RHYTHM MINIMAL VOLTAGE CRITERIA FOR LVH, MAY BE NORMAL VARIANT BORDERLINE ECG WHEN COMPARED WITH ECG OF 28-DEC-2016 05:48, NO SIGNIFICANT CHANGE WAS FOUND Confirmed by MOSES MORENO, TREY ([id number]) on 12/29/2016 11:56:20 AM Referred By: Meghan Ferrara Confirmed By:TREY LOPES MD
[2016-12-29] MEDS: THIAMINE HCL 100 MG TABLET (FP) PO SCH (21:08)
[2016-12-29] MEDS: ATORVASTATIN CA 20 MG TABLET (FP) PO SCH (21:08)
[2016-12-29] MEDS: diphenhydrAMINE HCL 50 MG CAPSULE PO PRN (21:09)
[2016-12-30] MEDS: GABAPENTIN 300 MG CAPSULE (FP) PO SCH ×3 (06:26→21:10)
[2016-12-30] MEDS: METOPROLOL SUCCINATE 25 MG TAB.SR.24H (FP) PO SCH ×2 (09:32→21:10)
[2016-12-30] MEDS: LOSARTAN POTASSIUM 50 MG TABLET (FP) PO SCH (09:32)
[2016-12-30] MEDS: PRENATAL VITAMINS W/ FOLIC ACID TABLET (FP) PO SCH (09:32)
[2016-12-30] MEDS: amLODIPine BESYLATE 10 MG TABLET (FP) PO SCH (09:32)
[2016-12-30] MEDS: ASPIRIN 81 MG CHEWABLE TABLETS PO SCH (09:32)
[2016-12-30] MEDS: NICOTINE 14 MG/24 HOURS TOPICAL PATCH TD SCH (09:33)
--- NOTE | 2016-12-30 12:21 | PN ---
[facility] Progress Note Note: bp slightly elevated will increase cozaar to 100mg daily cont bp monitoring
--- NOTE | 2016-12-30 14:39 | PN ---
Psychiatric Progress Note Vital Signs: Vital Signs Period Temp Pulse Resp BP Sys/Bang Pulse Ox Last 24 Hr 98.5 F 80-81 16-18 127-129/79-91 Date of Session: 12/30/16 Chief Complaint:: "craving" HPI: Patient is addressing alcohol , nicotine dependence. ROS: HTN, hyperlipedemia,LBP, alcohol related seizure, PE/DVT left leg with IVC placed in 2006. Current Medications: Active Medications Generic Name Dose Route Start Last Admin Trade Name Freq PRN Reason Stop Dose Admin Acamprosate 666 mg 12/30/16 22:00 Campral - PO TID XAVIER Acetaminophen 650 mg 12/27/16 20:05 Tylenol - PO Q4H PRN PAIN Al Hydroxide/Mg Hydroxide 30 ml 12/27/16 20:05 Mylanta Oral Suspension - PO Q6H PRN DYSPEPSIA Amlodipine Besylate 10 mg 12/27/16 20:15 12/30/16 09:32 Norvasc - PO 10 mg DAILY XAVIER Administration Aspirin 81 mg 12/28/16 10:00 12/30/16 09:32 Asa - PO 81 mg DAILY XAVIER Administration Atorvastatin Calcium 20 mg 12/27/16 22:00 12/29/16 21:08 Lipitor - PO 20 mg HS XAVIER Administration Baclofen 10 mg 12/27/16 20:06 12/28/16 21:09 Lioresal - PO 10 mg TID PRN Administration BACK PAIN Diphenhydramine HCl 50 mg 12/29/16 10:38 12/29/16 21:09 Benadryl - PO 50 mg HS PRN Administration INSOMNIA Eucalyptus/Menthol/Phenol/Sorbitol 1 each 12/27/16 20:05 Cepastat Lozenge - MM Q4H PRN SORE THROAT Gabapentin 300 mg 12/27/16 22:00 12/30/16 14:06 Neurontin - PO 300 mg TID XAVIER Administration Guaifenesin 10 ml 12/27/16 20:05 Robitussin Dm - PO Q6H PRN COUGH Loperamide HCl 4 mg 12/27/16 20:05 12/28/16 22:33 Imodium - PO 4 mg Q6H PRN Administration DIARRHEA Losartan Potassium 100 mg 12/31/16 10:00 Cozaar - PO DAILY XAVIER Magnesium Citrate 300 ml 12/27/16 20:05 Citroma - PO Q48H PRN CONSTIPATION Magnesium Hydroxide 30 ml 12/27/16 20:05 Milk Of Magnesia - PO DAILY PRN CONSTIPATION Metoprolol Succinate 25 mg 12/27/16 22:00 12/30/16 09:32 Toprol Xl - PO 25 mg BID XAVIER Administration Nicotine 14 mg 12/28/16 10:00 12/30/16 09:33 Nicoderm Patch - TD 14 mg DAILY XAVIER Administration Nicotine Polacrilex 2 mg 12/27/16 20:05 Nicorette Gum - BUC Q2H PRN NICOTINE REPLACEMENT RX Multivit/Folic Acid/Iron 1 tab 12/28/16 10:00 12/30/16 09:32 Vitamins ([facility]) - PO 1 tab DAILY XAVIER Administration Pseudoephedrine/Triprolidine 1 combo 12/27/16 20:05 Actifed - PO TID PRN NASAL CONGESTION Thiamine HCl 100 mg 12/27/16 22:00 12/29/16 21:08 Vitamin B1 - PO 100 mg HS XAVIER Administration Medication(s) Change(s): Campral 666 mg po tid. Current Side Effect: No Lab tests ordered: No Lab tests reviewed: Yes Provider note:: Patient reports he has craving and anxious that he might relapse after the completion of his treatment Discussed indicationsma dproperties of CAmpra, psycheducation provided, patient agreed to start tretament while he is in rehabilitaiton. Will add Campral and monitor progress as needed. Total face to face time:: 30 Mental Status Exam - Mental Status Exam Alert and Oriented to: Time, Place, Person Cognitive Function: Good Patient Appearance: Well Groomed Mood: Anxious Affect: Appropriate, Mood Congruent Patient Behavior: Appropriate, Cooperative Speech Pattern: Clear, Appropriate Voice Loudness: Normal Thought Process: Intact, Goal Oriented Thought Disorder: Not Present Hallucinations: Denies Suicidal Ideation: Denies Homicidal Ideation: Denies Insight/Judgement: Fair Sleep: Fair Appetite: Fair Muscle strength/Tone: Normal Gait/Station: Normal Psychiatric Treatment Plan - Problem List (1) Nicotine dependence Current Visit: Yes Qualifiers: Nicotine product type: cigarettes Substance use status: in withdrawal Qualified Code(s): F17.213 - Nicotine dependence, cigarettes, with withdrawal; F17.213 - Nicotine dependence, cigarettes, with withdrawal (2) Essential hypertension Current Visit: Yes (3) Hypercholesterolemia Current Visit: Yes (4) Low back pain Current Visit: No Qualifiers: Chronicity: acute Back pain laterality: unspecified Sciatica presence: unspecified whether sciatica present Qualified Code(s): M54.5 - Low back pain; M54.5 - Low back pain (5) Seizure Current Visit: No (6) Alcohol dependence Current Visit: Yes
--- NOTE | 2016-12-30 15:14 | PN ---
[facility] Progress Note Note: AMMONIA LEVEL 44.4 TO GIVE LACTULOSE 20 GRAMS PO BID,D/C TYLENOL
[2016-12-30] MEDS: ATORVASTATIN CA 20 MG TABLET (FP) PO SCH (21:10)
[2016-12-30] MEDS: THIAMINE HCL 100 MG TABLET (FP) PO SCH (21:10)
[2016-12-30] MEDS: LACTULOSE 20 GM/30 ML UDC (FOR ORAL USE ONLY) PO SCH (21:12)
[2016-12-30] MEDS: ACAMPROSATE CALCIUM 333 MG TABLET.DR PO SCH (21:12)
[2016-12-30] MEDS: diphenhydrAMINE HCL 50 MG CAPSULE PO PRN (22:07)
[2016-12-31] MEDS: ACAMPROSATE CALCIUM 333 MG TABLET.DR PO SCH ×3 (06:09→21:13)
[2016-12-31] MEDS: GABAPENTIN 300 MG CAPSULE (FP) PO SCH ×3 (06:09→21:13)
[2016-12-31] MEDS: LACTULOSE 20 GM/30 ML UDC (FOR ORAL USE ONLY) PO SCH ×2 (10:00→21:12)
[2016-12-31] MEDS ORDERED: AMLODIPINE PO SCH (10:00)
[2016-12-31] MEDS: PRENATAL VITAMINS W/ FOLIC ACID TABLET (FP) PO SCH (10:00)
[2016-12-31] MEDS: ASPIRIN 81 MG CHEWABLE TABLETS PO SCH (10:00)
[2016-12-31] MEDS: METOPROLOL SUCCINATE 25 MG TAB.SR.24H (FP) PO SCH ×2 (10:00→21:14)
[2016-12-31] MEDS: NICOTINE 14 MG/24 HOURS TOPICAL PATCH TD SCH (10:00)
[2016-12-31] MEDS: LOSARTAN POTASSIUM 50 MG TABLET (FP) PO SCH (10:01)
[2016-12-31] MEDS: amLODIPine BESYLATE 10 MG TABLET (FP) PO SCH (10:01)
[2016-12-31] MEDS: THIAMINE HCL 100 MG TABLET (FP) PO SCH (21:13)
[2016-12-31] MEDS: ATORVASTATIN CA 20 MG TABLET (FP) PO SCH (21:13)
[2016-12-31] MEDS: diphenhydrAMINE HCL 50 MG CAPSULE PO PRN (21:15)
[2017-01-01] MEDS: GABAPENTIN 300 MG CAPSULE (FP) PO SCH ×3 (06:20→21:10)
[2017-01-01] MEDS: ACAMPROSATE CALCIUM 333 MG TABLET.DR PO SCH ×3 (06:20→21:10)
[2017-01-01] MEDS: ASPIRIN 81 MG CHEWABLE TABLETS PO SCH (09:36)
[2017-01-01] MEDS: amLODIPine BESYLATE 10 MG TABLET (FP) PO SCH (09:36)
[2017-01-01] MEDS: PRENATAL VITAMINS W/ FOLIC ACID TABLET (FP) PO SCH (09:36)
[2017-01-01] MEDS: METOPROLOL SUCCINATE 25 MG TAB.SR.24H (FP) PO SCH ×2 (09:36→21:10)
[2017-01-01] MEDS: LOSARTAN POTASSIUM 50 MG TABLET (FP) PO SCH (09:37)
[2017-01-01] MEDS: LACTULOSE 20 GM/30 ML UDC (FOR ORAL USE ONLY) PO SCH ×2 (09:37→21:12)
[2017-01-01] MEDS: NICOTINE 14 MG/24 HOURS TOPICAL PATCH TD SCH (09:38)
[2017-01-01] MEDS: ATORVASTATIN CA 20 MG TABLET (FP) PO SCH (21:10)
[2017-01-01] MEDS: diphenhydrAMINE HCL 50 MG CAPSULE PO PRN (21:11)
[2017-01-01] MEDS: THIAMINE HCL 100 MG TABLET (FP) PO SCH (21:11)
[2017-01-02] MEDS: ACAMPROSATE CALCIUM 333 MG TABLET.DR PO SCH ×3 (06:12→21:05)
[2017-01-02] MEDS: GABAPENTIN 300 MG CAPSULE (FP) PO SCH ×3 (06:59→21:05)
[2017-01-02] MEDS: METOPROLOL SUCCINATE 25 MG TAB.SR.24H (FP) PO SCH ×2 (09:58→22:13)
[2017-01-02] MEDS: PRENATAL VITAMINS W/ FOLIC ACID TABLET (FP) PO SCH (09:58)
[2017-01-02] MEDS: LOSARTAN POTASSIUM 50 MG TABLET (FP) PO SCH (09:59)
[2017-01-02] MEDS: amLODIPine BESYLATE 10 MG TABLET (FP) PO SCH (09:59)
[2017-01-02] MEDS: LACTULOSE 20 GM/30 ML UDC (FOR ORAL USE ONLY) PO SCH ×2 (10:00→21:05)
[2017-01-02] MEDS: NICOTINE 14 MG/24 HOURS TOPICAL PATCH TD SCH (10:00)
[2017-01-02] MEDS: ASPIRIN 81 MG CHEWABLE TABLETS PO SCH (10:00)
[2017-01-02] MEDS ORDERED: PT OWN MED DRAWER 7, Y5N ONE (20:22)
[2017-01-02] MEDS: THIAMINE HCL 100 MG TABLET (FP) PO SCH (21:05)
[2017-01-02] MEDS: ATORVASTATIN CA 20 MG TABLET (FP) PO SCH (21:05)
[2017-01-02] MEDS: diphenhydrAMINE HCL 50 MG CAPSULE PO PRN (21:06)
[2017-01-02] MEDS: BACLOFEN 10 MG TABLET (FP) PO PRN (22:18)
[2017-01-03] MEDS: GABAPENTIN 300 MG CAPSULE (FP) PO SCH ×3 (06:10→21:02)
[2017-01-03] MEDS: ACAMPROSATE CALCIUM 333 MG TABLET.DR PO SCH ×3 (06:10→21:02)
[2017-01-03] MEDS: LOSARTAN POTASSIUM 50 MG TABLET (FP) PO SCH (09:55)
[2017-01-03] MEDS: ASPIRIN 81 MG CHEWABLE TABLETS PO SCH (09:55)
[2017-01-03] MEDS: amLODIPine BESYLATE 10 MG TABLET (FP) PO SCH (09:56)
[2017-01-03] MEDS: NICOTINE 14 MG/24 HOURS TOPICAL PATCH TD SCH (09:56)
[2017-01-03] MEDS: LACTULOSE 20 GM/30 ML UDC (FOR ORAL USE ONLY) PO SCH ×2 (09:56→21:03)
[2017-01-03] MEDS: PRENATAL VITAMINS W/ FOLIC ACID TABLET (FP) PO SCH (09:56)
[2017-01-03] MEDS: METOPROLOL SUCCINATE 25 MG TAB.SR.24H (FP) PO SCH ×2 (10:47→21:02)
[2017-01-03] MEDS: ATORVASTATIN CA 20 MG TABLET (FP) PO SCH (21:02)
[2017-01-03] MEDS: THIAMINE HCL 100 MG TABLET (FP) PO SCH (21:02)
[2017-01-04] MEDS: GABAPENTIN 300 MG CAPSULE (FP) PO SCH ×3 (06:25→21:08)
[2017-01-04] MEDS: ACAMPROSATE CALCIUM 333 MG TABLET.DR PO SCH ×3 (06:25→21:08)
[2017-01-04] MEDS: LOSARTAN POTASSIUM 50 MG TABLET (FP) PO SCH (09:56)
[2017-01-04] MEDS: ASPIRIN 81 MG CHEWABLE TABLETS PO SCH (09:56)
[2017-01-04] MEDS: PRENATAL VITAMINS W/ FOLIC ACID TABLET (FP) PO SCH (09:56)
[2017-01-04] MEDS: METOPROLOL SUCCINATE 25 MG TAB.SR.24H (FP) PO SCH ×2 (09:56→21:08)
[2017-01-04] MEDS: amLODIPine BESYLATE 10 MG TABLET (FP) PO SCH (09:57)
[2017-01-04] MEDS: NICOTINE 14 MG/24 HOURS TOPICAL PATCH TD SCH (09:57)
[2017-01-04] MEDS: LACTULOSE 20 GM/30 ML UDC (FOR ORAL USE ONLY) PO SCH (09:57)
--- NOTE | 2017-01-04 14:31 | PN ---
Psychiatric Progress Note Vital Signs: Vital Signs Period Temp Pulse Resp BP Sys/Bang Pulse Ox Last 24 Hr 98.2 F 83-90 18-18 107-127/74-93 Date of Session: 01/04/17 Chief Complaint:: insomnia HPI: Patient is addressing alcohol , nicotine dependence. ROS: HTN, hyperlipedemia,LBP, alcohol related seizure, PE/DVT left leg with IVC placed in 2006. Current Medications: Active Medications Generic Name Dose Route Start Last Admin Trade Name Freq PRN Reason Stop Dose Admin Acamprosate 666 mg 12/30/16 22:00 01/04/17 14:20 Campral - PO 666 mg TID XAVIER Administration Al Hydroxide/Mg Hydroxide 30 ml 12/27/16 20:05 Mylanta Oral Suspension - PO Q6H PRN DYSPEPSIA Amlodipine Besylate 10 mg 12/31/16 10:00 01/04/17 09:57 Norvasc - PO 10 mg DAILY XAVIER Administration Aspirin 81 mg 12/28/16 10:00 01/04/17 09:56 Asa - PO 81 mg DAILY XAVIER Administration Atorvastatin Calcium 20 mg 12/27/16 22:00 01/03/17 21:02 Lipitor - PO 20 mg HS XAVIER Administration Baclofen 10 mg 12/27/16 20:06 01/02/17 22:18 Lioresal - PO 10 mg TID PRN Administration BACK PAIN Diphenhydramine HCl 50 mg 12/29/16 10:38 01/02/17 21:06 Benadryl - PO 50 mg HS PRN Administration INSOMNIA Eucalyptus/Menthol/Phenol/Sorbitol 1 each 12/27/16 20:05 Cepastat Lozenge - MM Q4H PRN SORE THROAT Gabapentin 300 mg 12/27/16 22:00 01/04/17 14:20 Neurontin - PO 300 mg TID XAVIER Administration Guaifenesin 10 ml 12/27/16 20:05 Robitussin Dm - PO Q6H PRN COUGH Lactulose 20 gm 01/05/17 10:00 Cephulac (Oral Use) PO DAILY XAVIER Loperamide HCl 4 mg 12/27/16 20:05 12/28/16 22:33 Imodium - PO 4 mg Q6H PRN Administration DIARRHEA Losartan Potassium 100 mg 12/31/16 10:00 01/04/17 09:56 Cozaar - PO 100 mg DAILY XAVIER Administration Magnesium Citrate 300 ml 12/27/16 20:05 Citroma - PO Q48H PRN CONSTIPATION Magnesium Hydroxide 30 ml 12/27/16 20:05 01/03/17 12:57 Milk Of Magnesia - PO 30 ml DAILY PRN Administration CONSTIPATION Metoprolol Succinate 25 mg 12/27/16 22:00 01/04/17 09:56 Toprol Xl - PO 25 mg BID XAVIER Administration Nicotine 14 mg 12/28/16 10:00 01/04/17 09:57 Nicoderm Patch - TD 14 mg DAILY XAVIER Administration Nicotine Polacrilex 2 mg 12/27/16 20:05 Nicorette Gum - BUC Q2H PRN NICOTINE REPLACEMENT RX Multivit/Folic Acid/Iron 1 tab 12/28/16 10:00 01/04/17 09:56 Vitamins ([facility]) - PO 1 tab DAILY XAVIER Administration Pseudoephedrine/Triprolidine 1 combo 12/27/16 20:05 Actifed - PO TID PRN NASAL CONGESTION Thiamine HCl 100 mg 12/27/16 22:00 01/03/17 21:02 Vitamin B1 - PO 100 mg HS XAVIER Administration Medication(s) Change(s): add Belsomra 5 mg po hs. Current Side Effect: No Lab tests ordered: No Lab tests reviewed: Yes Provider note:: Patient reports he has difficulty to fall and maintain sleep, benadryl not effective, discusssed indications and properties of belsomra, patient agreed to start, will add 5mg po hs, continue to monitor progress. Total face to face time:: 15 Mental Status Exam - Mental Status Exam Alert and Oriented to: Time, Place, Person Cognitive Function: Good Patient Appearance: Well Groomed Mood: Hopeful Affect: Appropriate, Mood Congruent Patient Behavior: Appropriate, Cooperative Speech Pattern: Clear, Appropriate Voice Loudness: Normal Thought Process: Intact, Goal Oriented Thought Disorder: Not Present Hallucinations: Denies Suicidal Ideation: Denies Homicidal Ideation: Denies Insight/Judgement: Fair Sleep: Poorly, Difficulty falling asleep Appetite: Good Muscle strength/Tone: Normal Gait/Station: Normal Psychiatric Treatment Plan - Problem List (1) Nicotine dependence Current Visit: Yes Qualifiers: Nicotine product type: cigarettes Substance use status: in withdrawal Qualified Code(s): F17.213 - Nicotine dependence, cigarettes, with withdrawal; F17.213 - Nicotine dependence, cigarettes, with withdrawal (2) Essential hypertension Current Visit: Yes (3) Hypercholesterolemia Current Visit: Yes (4) Low back pain Current Visit: No Qualifiers: Chronicity: acute Back pain laterality: unspecified Sciatica presence: unspecified whether sciatica present Qualified Code(s): M54.5 - Low back pain; M54.5 - Low back pain (5) Seizure Current Visit: No (6) Alcohol dependence Current Visit: Yes (7) Alcohol-induced sleep disorder Current Visit: No
[2017-01-04 15:57] LABS: ALBUMIN 3.2 g/dl (3.4-5.0); ALK PHOS 74 U/L (45-117); ANION GAP 9 (8-16); BILIRUBIN,TOTAL 0.5 mg/dL (0.2-1.0); CO2 26 mmol/L (21-32); CREATININE 1.2 mg/dL (0.7-1.3); GLUCOSE,RANDOM 90 mg/dL (74-106); SGOT/AST 21 U/L (15-37); SGPT/ALT 22 U/L (12-78); TOT PROT 6.8 g/dl (6.4-8.2)
[2017-01-04] MEDS: THIAMINE HCL 100 MG TABLET (FP) PO SCH (21:08)
[2017-01-04] MEDS: ATORVASTATIN CA 20 MG TABLET (FP) PO SCH (21:08)
[2017-01-04] MEDS: SUVOREXANT 5 MG TABLET PO SCH (21:08)
[2017-01-04] MEDS: diphenhydrAMINE HCL 50 MG CAPSULE PO PRN (21:10)
[2017-01-04] MEDS: BACLOFEN 10 MG TABLET (FP) PO PRN (21:53)
[2017-01-05] MEDS: GABAPENTIN 300 MG CAPSULE (FP) PO SCH ×3 (06:33→21:14)
[2017-01-05] MEDS: ACAMPROSATE CALCIUM 333 MG TABLET.DR PO SCH ×3 (06:33→21:13)
[2017-01-05] MEDS: ASPIRIN 81 MG CHEWABLE TABLETS PO SCH (09:53)
[2017-01-05] MEDS: amLODIPine BESYLATE 10 MG TABLET (FP) PO SCH (09:54)
[2017-01-05] MEDS: LACTULOSE 20 GM/30 ML UDC (FOR ORAL USE ONLY) PO SCH (09:54)
[2017-01-05] MEDS: PRENATAL VITAMINS W/ FOLIC ACID TABLET (FP) PO SCH (09:54)
[2017-01-05] MEDS: LOSARTAN POTASSIUM 50 MG TABLET (FP) PO SCH (09:54)
[2017-01-05] MEDS: METOPROLOL SUCCINATE 25 MG TAB.SR.24H (FP) PO SCH ×2 (09:54→21:14)
[2017-01-05] MEDS: NICOTINE 14 MG/24 HOURS TOPICAL PATCH TD SCH (09:56)
[2017-01-05] MEDS: BACLOFEN 10 MG TABLET (FP) PO PRN ×2 (10:25→23:34)
--- NOTE | 2017-01-05 11:39 | PN ---
S Progress Note Note: c/o excessive noctureia, medications and labwork reviewed, will d/c fluids elevated ammmonia leve reviewed will take lactulose, decreased dose patient may refuse as it was diarrhoea/skin irrotaion
[2017-01-05] MEDS: SUVOREXANT 5 MG TABLET PO SCH (21:13)
[2017-01-05] MEDS: ATORVASTATIN CA 20 MG TABLET (FP) PO SCH (21:14)
[2017-01-05] MEDS: THIAMINE HCL 100 MG TABLET (FP) PO SCH (21:14)
[2017-01-05] MEDS ORDERED: LORATADINE 10 MG TABLET PO ONE (23:18)
[2017-01-06] MEDS: ACAMPROSATE CALCIUM 333 MG TABLET.DR PO SCH ×3 (06:33→21:07)
[2017-01-06] MEDS: GABAPENTIN 300 MG CAPSULE (FP) PO SCH ×3 (06:33→21:07)
[2017-01-06] MEDS: ASPIRIN 81 MG CHEWABLE TABLETS PO SCH (09:51)
[2017-01-06] MEDS: amLODIPine BESYLATE 10 MG TABLET (FP) PO SCH (09:52)
[2017-01-06] MEDS: METOPROLOL SUCCINATE 25 MG TAB.SR.24H (FP) PO SCH ×2 (09:52→21:07)
[2017-01-06] MEDS: PRENATAL VITAMINS W/ FOLIC ACID TABLET (FP) PO SCH (09:52)
[2017-01-06] MEDS: LACTULOSE 20 GM/30 ML UDC (FOR ORAL USE ONLY) PO SCH (09:52)
[2017-01-06] MEDS: LOSARTAN POTASSIUM 50 MG TABLET (FP) PO SCH (09:52)
[2017-01-06] MEDS: NICOTINE 14 MG/24 HOURS TOPICAL PATCH TD SCH (09:53)
[2017-01-06] MEDS: BACLOFEN 10 MG TABLET (FP) PO PRN ×2 (11:08→21:09)
[2017-01-06] MEDS: P-EPHED 60MG/TRIPROLIDI 2.5MG TABLET PO PRN ×2 (11:08→21:09)
[2017-01-06] MEDS: ATORVASTATIN CA 20 MG TABLET (FP) PO SCH (21:07)
[2017-01-06] MEDS: THIAMINE HCL 100 MG TABLET (FP) PO SCH (21:07)
[2017-01-06] MEDS: SUVOREXANT 5 MG TABLET PO SCH (21:07)
[2017-01-07] MEDS: ACAMPROSATE CALCIUM 333 MG TABLET.DR PO SCH ×3 (06:31→21:05)
[2017-01-07] MEDS: GABAPENTIN 300 MG CAPSULE (FP) PO SCH ×3 (06:31→21:05)
[2017-01-07] MEDS: LOSARTAN POTASSIUM 50 MG TABLET (FP) PO SCH (09:34)
[2017-01-07] MEDS: METOPROLOL SUCCINATE 25 MG TAB.SR.24H (FP) PO SCH ×2 (09:34→21:05)
[2017-01-07] MEDS: amLODIPine BESYLATE 10 MG TABLET (FP) PO SCH (09:34)
[2017-01-07] MEDS: ASPIRIN 81 MG CHEWABLE TABLETS PO SCH (09:34)
[2017-01-07] MEDS: PRENATAL VITAMINS W/ FOLIC ACID TABLET (FP) PO SCH (09:34)
[2017-01-07] MEDS: LACTULOSE 20 GM/30 ML UDC (FOR ORAL USE ONLY) PO SCH (09:34)
[2017-01-07] MEDS: NICOTINE 14 MG/24 HOURS TOPICAL PATCH TD SCH (09:35)
[2017-01-07] MEDS: BACLOFEN 10 MG TABLET (FP) PO PRN ×2 (10:51→21:07)
[2017-01-07] MEDS: ATORVASTATIN CA 20 MG TABLET (FP) PO SCH (21:05)
[2017-01-07] MEDS: THIAMINE HCL 100 MG TABLET (FP) PO SCH (21:05)
[2017-01-07] MEDS: SUVOREXANT 5 MG TABLET PO SCH (21:05)
[2017-01-07] MEDS: P-EPHED 60MG/TRIPROLIDI 2.5MG TABLET PO PRN (21:07)
[2017-01-08] MEDS: ACAMPROSATE CALCIUM 333 MG TABLET.DR PO SCH ×3 (06:25→21:26)
[2017-01-08] MEDS: GABAPENTIN 300 MG CAPSULE (FP) PO SCH ×3 (06:25→21:26)
[2017-01-08] MEDS: NICOTINE 14 MG/24 HOURS TOPICAL PATCH TD SCH (09:51)
[2017-01-08] MEDS: LACTULOSE 20 GM/30 ML UDC (FOR ORAL USE ONLY) PO SCH (09:51)
[2017-01-08] MEDS: PRENATAL VITAMINS W/ FOLIC ACID TABLET (FP) PO SCH (09:51)
[2017-01-08] MEDS: ASPIRIN 81 MG CHEWABLE TABLETS PO SCH (09:51)
[2017-01-08] MEDS: LOSARTAN POTASSIUM 50 MG TABLET (FP) PO SCH (09:51)
[2017-01-08] MEDS: METOPROLOL SUCCINATE 25 MG TAB.SR.24H (FP) PO SCH ×2 (09:52→21:29)
[2017-01-08] MEDS: amLODIPine BESYLATE 10 MG TABLET (FP) PO SCH (09:52)
[2017-01-08] MEDS: BACLOFEN 10 MG TABLET (FP) PO PRN ×2 (10:48→21:29)
[2017-01-08] MEDS: ATORVASTATIN CA 20 MG TABLET (FP) PO SCH (21:26)
[2017-01-08] MEDS: THIAMINE HCL 100 MG TABLET (FP) PO SCH (21:26)
[2017-01-08] MEDS: SUVOREXANT 5 MG TABLET PO SCH (21:27)
[2017-01-08] MEDS: P-EPHED 60MG/TRIPROLIDI 2.5MG TABLET PO PRN (22:27)
[2017-01-09] MEDS: ACAMPROSATE CALCIUM 333 MG TABLET.DR PO SCH ×3 (06:28→21:08)
[2017-01-09] MEDS: GABAPENTIN 300 MG CAPSULE (FP) PO SCH ×3 (06:28→21:08)
[2017-01-09] MEDS: LACTULOSE 20 GM/30 ML UDC (FOR ORAL USE ONLY) PO SCH (09:30)
[2017-01-09] MEDS: PRENATAL VITAMINS W/ FOLIC ACID TABLET (FP) PO SCH (09:48)
[2017-01-09] MEDS: amLODIPine BESYLATE 10 MG TABLET (FP) PO SCH (09:49)
[2017-01-09] MEDS: LOPERAMIDE HCL 2 MG CAPSULE PO PRN (09:49)
[2017-01-09] MEDS: METOPROLOL SUCCINATE 25 MG TAB.SR.24H (FP) PO SCH ×2 (09:49→21:09)
[2017-01-09] MEDS: LOSARTAN POTASSIUM 50 MG TABLET (FP) PO SCH (09:49)
[2017-01-09] MEDS: ASPIRIN 81 MG CHEWABLE TABLETS PO SCH (09:49)
[2017-01-09] MEDS: NICOTINE 14 MG/24 HOURS TOPICAL PATCH TD SCH (09:50)
--- NOTE | 2017-01-09 13:43 | PN ---
Psychiatric Progress Note Vital Signs: Vital Signs Period Temp Pulse Resp BP Sys/Bang Pulse Ox Last 24 Hr 98.2 F 75-96 18-18 103-130/72-90 Date of Session: 01/09/17 Chief Complaint:: Discharge Note HPI: Patient addressing Alcohol Dependence comorbid with Nicotine Dependence ROS: HTN, Hyperlipidemia and LBP were medically managed Current Medications: Active Medications Generic Name Dose Route Start Last Admin Trade Name Freq PRN Reason Stop Dose Admin Acamprosate 666 mg 12/30/16 22:00 01/09/17 06:28 Campral - PO 666 mg TID XAVIER Administration Al Hydroxide/Mg Hydroxide 30 ml 12/27/16 20:05 Mylanta Oral Suspension - PO Q6H PRN DYSPEPSIA Amlodipine Besylate 10 mg 12/31/16 10:00 01/09/17 09:49 Norvasc - PO 10 mg DAILY XAVIER Administration Aspirin 81 mg 12/28/16 10:00 01/09/17 09:49 Asa - PO 81 mg DAILY XAVIER Administration Atorvastatin Calcium 20 mg 12/27/16 22:00 01/08/17 21:26 Lipitor - PO 20 mg HS XAVIER Administration Baclofen 10 mg 12/27/16 20:06 01/08/17 21:29 Lioresal - PO 10 mg TID PRN Administration BACK PAIN Eucalyptus/Menthol/Phenol/Sorbitol 1 each 12/27/16 20:05 Cepastat Lozenge - MM Q4H PRN SORE THROAT Gabapentin 300 mg 12/27/16 22:00 01/09/17 06:28 Neurontin - PO 300 mg TID XAVIER Administration Guaifenesin 10 ml 12/27/16 20:05 Robitussin Dm - PO Q6H PRN COUGH Lactulose 20 gm 01/05/17 10:00 01/09/17 09:30 Cephulac (Oral Use) PO Not Given DAILY XAVIER Loperamide HCl 4 mg 12/27/16 20:05 01/09/17 09:49 Imodium - PO 4 mg Q6H PRN Administration DIARRHEA Losartan Potassium 100 mg 12/31/16 10:00 01/09/17 09:49 Cozaar - PO 100 mg DAILY XAVIER Administration Magnesium Citrate 300 ml 12/27/16 20:05 Citroma - PO Q48H PRN CONSTIPATION Magnesium Hydroxide 30 ml 12/27/16 20:05 01/03/17 12:57 Milk Of Magnesia - PO 30 ml DAILY PRN Administration CONSTIPATION Metoprolol Succinate 25 mg 12/27/16 22:00 01/09/17 09:49 Toprol Xl - PO 25 mg BID XAVIER Administration Nicotine 14 mg 12/28/16 10:00 01/09/17 09:50 Nicoderm Patch - TD 14 mg DAILY XAVIER Administration Nicotine Polacrilex 2 mg 12/27/16 20:05 Nicorette Gum - BUC Q2H PRN NICOTINE REPLACEMENT RX Multivit/Folic Acid/Iron 1 tab 12/28/16 10:00 01/09/17 09:48 Vitamins ([facility]) - PO 1 tab DAILY XAVIER Administration Pseudoephedrine/Triprolidine 1 combo 12/27/16 20:05 01/08/17 22:27 Actifed - PO 1 combo TID PRN Administration NASAL CONGESTION Thiamine HCl 100 mg 12/27/16 22:00 01/08/17 21:26 Vitamin B1 - PO 100 mg HS XAVIER Administration Current Side Effect: No Lab tests ordered: Yes Lab tests reviewed: Yes Provider note:: Patient will complete this program on 01/10/17. He has met his treatment goals and will continue to address his issues in outpatient treatment at [facility]. 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 He said that from nursing staff, he learned what alcohol and drug can do to your body. From the counselling staff, he learned about his higher power, relapse prevention etc. He responded well to Acamprosate(Campral) 666 mg po TID for alcohol craving. Scripts for 30 days supply of medication given to patient since e transmission for that medication could not be done. He is stable for discharge on 01/10/17 Total face to face time:: 35 Mental Status Exam - Mental Status Exam Alert and Oriented to: Time, Place, Person Cognitive Function: Fair Mood: Hopeful, Euthymic Affect: Appropriate Patient Behavior: Cooperative Speech Pattern: Clear Voice Loudness: Normal Thought Process: Intact, Goal Oriented Thought Disorder: Not Present Hallucinations: Denies Suicidal Ideation: Denies Homicidal Ideation: Denies Insight/Judgement: Fair Sleep: Fair Appetite: Good Muscle strength/Tone: Normal Gait/Station: Normal Psychiatric Treatment Plan - Problem List (1) Alcohol dependence Current Visit: Yes (2) Nicotine dependence Current Visit: Yes Qualifiers: Nicotine product type: cigarettes Substance use status: in withdrawal Qualified Code(s): F17.213 - Nicotine dependence, cigarettes, with withdrawal; F17.213 - Nicotine dependence, cigarettes, with withdrawal (3) Low back pain Current Visit: No Qualifiers: Chronicity: acute Back pain laterality: unspecified Sciatica presence: unspecified whether sciatica present Qualified Code(s): M54.5 - Low back pain; M54.5 - Low back pain (4) Alcohol-induced sleep disorder Current Visit: No (5) Essential hypertension Current Visit: Yes (6) Hypercholesterolemia Current Visit: Yes (7) History of deep venous thrombosis (DVT) of distal vein of left lower extremity Current Visit: No (8) History of pulmonary embolism Current Visit: No (9) S/P IVC filter Current Visit: No Initial treatment plan: Patient is discharged tomorrow and referred to [facility] for outpatient treatment
[2017-01-09] MEDS: ATORVASTATIN CA 20 MG TABLET (FP) PO SCH (21:08)
[2017-01-09] MEDS: THIAMINE HCL 100 MG TABLET (FP) PO SCH (21:08)
[2017-01-09] MEDS: SUVOREXANT 5 MG TABLET PO SCH (21:08)
[2017-01-09] MEDS: P-EPHED 60MG/TRIPROLIDI 2.5MG TABLET PO PRN (21:10)
[2017-01-09] MEDS: BACLOFEN 10 MG TABLET (FP) PO PRN (21:10)
[2017-01-10] MEDS: ACAMPROSATE CALCIUM 333 MG TABLET.DR PO SCH (06:06)
[2017-01-10] MEDS: GABAPENTIN 300 MG CAPSULE (FP) PO SCH (06:06)
[2017-01-10 06:51] VITALS: BP 125/84; PULSE 93; TEMP 97.9
[2017-01-10] MEDS: PRENATAL VITAMINS W/ FOLIC ACID TABLET (FP) PO SCH (09:50)
[2017-01-10] MEDS: NICOTINE 14 MG/24 HOURS TOPICAL PATCH TD SCH (09:51)
[2017-01-10] MEDS: ASPIRIN 81 MG CHEWABLE TABLETS PO SCH (09:52)
[2017-01-10] MEDS: LACTULOSE 20 GM/30 ML UDC (FOR ORAL USE ONLY) PO SCH (09:52)
[2017-01-10] MEDS: amLODIPine BESYLATE 10 MG TABLET (FP) PO SCH (09:53)
[2017-01-10] MEDS: METOPROLOL SUCCINATE 25 MG TAB.SR.24H (FP) PO SCH (09:56)
[2017-01-10] MEDS: LOSARTAN POTASSIUM 50 MG TABLET (FP) PO SCH (09:56)
[2017-01-10] MEDS: BACLOFEN 10 MG TABLET (FP) PO PRN (09:56)
--- NOTE | 2017-01-10 10:27 | PN ---
[facility] Progress Note Note: PATIENT IS ON NEURONTIN 300 MGS PO TID FOR NEUROPATHY,E PRESCRIPTION TO PATIENT PHARMACY ON DISCHARGE FOR 30 DAYS
== END 2017-01-10 11:10 | disposition home or self-care (01) | DRG 895 ==
LOC: YASAS 13:43 → Y5N 21:07
PROVIDERS: ADMIT Psychiatry & Neurology Psychiatry; ATTEND Psychiatry & Neurology Psychiatry
PROC: HZ42ZZZ Group Counseling for Substance Abuse Treatment, Cognitive-Behavioral (ICD-10-PCS; principal; 2016-12-27)
DX: F10.230 Alcohol dependence with withdrawal, uncomplicated (principal); F17.213 Nicotine dependence, cigarettes, with withdrawal; F10.282 Alcohol dependence with alcohol-induced sleep disorder; I10 Essential (primary) hypertension; E78.00 Pure hypercholesterolemia, unspecified; Z87.438 Personal history of other diseases of male genital organs; Z86.718 Personal history of other venous thrombosis and embolism; Z86.711 Personal history of pulmonary embolism
CPT/HCPCS: 36415; 80053; 81003; 82140; 85025; 93005; 93010; J0475